=== PATIENT | female | born 1955 | race Caucasian/White ===

== ENCOUNTER → 2017-08-20 | Outpatient (CLI) | payer OTHER | LOC: RAD 09:57 | PROVIDERS: ATTEND Internal Medicine | DX: Z12.31 Encounter for screening mammogram for malignant neoplasm of breast (principal) | CPT/HCPCS: 77067 ==

== ENCOUNTER → 2018-02-24 | Outpatient (CLI) | payer SELFPAY ==
[~2018-02-24] MED LIST: ANTI1CAP5 PO; CHOL500050 PO; DOCU100T7 PO; ESCI10TA PO; GABA-488 PO; GLUC1CAP37 PO; IBUP-1773 PO; IBUP1TAB9 PO; LACT1CAP62 PO; LISI1TAB6 PO; LORA10TA76 PO; OMEG100032 PO
--- NOTE | 2018-02-24 11:23 | Diagnostic Imaging Report ---
INDICATION: Postmenopausal bleeding. PROCEDURE: US Non-ob pelvis comp/trans. TECHNIQUE: Multiple Realtime grayscale images were obtained of the pelvis in Various projections endovaginally. Transabdominal imaging was also performed. FINDINGS: The uterus measures 7.7 x 5.4 x 4.5 cm. The endometrium is 9 mm in thickness. No myometrial mass is detected. There are some cystic regions located within the endometrium. There is endometrial heterogeneity present. The ovaries were not visualized. No adnexal mass or free fluid is seen. IMPRESSION: There is mild endometrial thickening at 6 mm with endometrial heterogeneity and multicystic changes, as described. No other significant abnormality is seen. Dictated by: Dictated on workstation # [id number]
== END ==
LOC: RAD 10:10
PROVIDERS: ATTEND Obstetrics & Gynecology
DX: N85.8 Other specified noninflammatory disorders of uterus (principal)
CPT/HCPCS: 76830; 76856

== ENCOUNTER 2018-02-25 05:35 | Outpatient (CLI) | payer OTHER ==
[~2018-02-25] VITALS: Ht 157.5 cm; Wt 88.5 kg
[2018-02-25] MEDS ORDERED: IBUP1TAB9 PO (13:41)
[2018-02-25] MEDS ORDERED: ESCI10TA PO (13:41)
[2018-02-25] MEDS ORDERED: GLUC1CAP37 PO (13:41)
[2018-02-25] MEDS ORDERED: LACT1CAP62 PO (13:41)
[2018-02-25] MEDS ORDERED: OMEG100032 PO (13:41)
[2018-02-25] MEDS ORDERED: ANTI1CAP5 PO (13:41)
[2018-02-25] MEDS ORDERED: CHOL500050 PO (13:41)
[2018-02-25] MEDS ORDERED: LORA10TA76 PO (13:41)
[2018-02-25] MEDS ORDERED: LISI1TAB6 PO (13:41)
[2018-02-25] MEDS ORDERED: GABA-488 PO (13:41)
[2018-02-25] MEDS ORDERED: DOCU100T7 PO (13:41)
== END 2018-02-25 13:50 ==
LOC: PREOP 05:35
PROVIDERS: ATTEND Obstetrics & Gynecology
DX: Z01.818 Encounter for other preprocedural examination (principal); N95.0 Postmenopausal bleeding

== ENCOUNTER 2018-02-28 07:37 | Day surgery (SDC) | payer SELFPAY ==
[~2018-02-28] VITALS: Ht 157.5 cm; Wt 88.5 kg
[~2018-02-28 07:37] MED LIST changes: -IBUP-1773 PO
[2018-02-28] MEDS ORDERED: proPOfol 200 MG/20 ML (DIPRIVAN) VIAL IV ONE (08:25)
[2018-02-28] MEDS ORDERED: ONDANSETRON 4 MG/2 ML (SDV) Z0FRAN ONE (08:25)
[2018-02-28] MEDS ORDERED: DEXAMETHASONE 10 MG/ML (DECADRON) 1 ML VIAL ONE (08:25)
[2018-02-28] MEDS ORDERED: LIDOCAINE PF 2% 5 ML (XYLOCAINE) VIAL ONE (08:25)
[2018-02-28] MEDS ORDERED: fentaNYL INJECTION 100 MCG/2 ML AMP ONE (08:26)
[2018-02-28] MEDS ORDERED: MIDAZOLAM 2 MG/2 ML (VERSED) VIAL ONE (08:26)
[2018-02-28 08:29] VITALS: BP 129/69
[2018-02-28] MEDS ORDERED: BUPIVACAINE 0.25% 30 ML (SENSORCAINE) VIAL ONE (08:44)
[2018-02-28 09:03] LABS: BASOPHILS # (AUTO) 0.1 10^3/uL (0.0-0.1); BASOPHILS % (AUTO) 2 % (0-10); EOSINOPHILS # (AUTO) 0.2 10^3/uL (0.0-0.3); EOSINOPHILS % (AUTO) 4 % (0-10); HEMATOCRIT 38 % (35-52); HEMOGLOBIN 12.7 G/DL (11.5-16.0); LYMPHOCYTES # (AUTO) 2.2 X 10^3 (1.0-4.0); LYMPHOCYTES % (AUTO) 40 % (12-44); MEAN CORPUSCULAR HEMOGLOBIN 29 PG (25-34); MEAN CORPUSCULAR HGB CONC 33 G/DL (32-36); MEAN CORPUSCULAR VOLUME 89 FL (80-99); MONOCYTES # (AUTO) 0.6 X 10^3 (0.0-1.0); MONOCYTES % (AUTO) 11 % (0-12); NEUTROPHILS # (AUTO) 2.4 X 10^3 (1.8-7.8); NEUTROPHILS % (AUTO) 43 % (42-75); PLATELET COUNT 284 10^3/uL (130-400); RED BLOOD COUNT 4.32 10^6/uL (4.35-5.85); RED CELL DISTRIBUTION WIDTH 14.5 % (10.0-14.5); WHITE BLOOD COUNT 5.6 10^3/uL (4.3-11.0)
[2018-02-28] MEDS ORDERED: D5 LR IV SOLUTION 1,000 ML IV SCH (09:52)
--- NOTE | 2018-02-28 09:52 | Progress Note-Pre Operative ---
Pre-Operative Progress Note H&P Reviewed The H&P was reviewed, patient examined and no changes noted. Date Seen by Provider: February 28, 2018 Time Seen by Provider: 09:52 Date H&P Reviewed: February 28, 2018 Time H&P Reviewed: 09:50 Pre-Operative Diagnosis: PMB, Endometrial thickening OSMAR WHITING DO February 28, 2018 9:52 am
--- NOTE | 2018-02-28 09:54 | Discharge Inst-Women's Service ---
Discharge Inst-Women's Serv Depart Medication/Instructions New, Converted or Re-Newed RX: RX on Chart Consults/Follow Up Additional Follow Up: Yes Orders/Referrals Dr. whiting in 2-3 weeks Activity Activity: Activity as Tolerated Driving Instructions: You May Drive (do not drive today) NO SMOKING: NO SMOKING Nothing Inside Vagina: No Douching, No [place], No Tampons Diet Discharge Diet: No Restrictions Symptoms to Report to : Bleeding Excessive, Pain Increased, Fever Over 101 Degrees F, Vaginal Bleeding Increase, Questions/Concerns For Any Problems or Questions: Contact Your Physician OSMAR WHITING DO February 28, 2018 9:54 am
[2018-02-28] MEDS ORDERED: IBUP-1773 PO (09:55)
[2018-02-28] MEDS ORDERED: HYDROcodone/APAP 5 MG/325 MG (LORTAB) TAB PO PRN (10:00)
[2018-02-28] MEDS ORDERED: KETOROLAC 30 MG/ML VIAL IVP ONE (10:00)
[2018-02-28] MEDS ORDERED: ONDANSETRON 4 MG/2 ML (SDV) Z0FRAN IVP PRN (10:00)
[2018-02-28] MEDS ORDERED: SEVOFLURANE (ULTANE) 15 ML INHAL SOLN ONE (10:30)
[2018-02-28 11:35] VITALS: BP 151/79
[2018-02-28 12:05] VITALS: BP 142/79
[2018-02-28 12:35] VITALS: BP 123/50
[2018-02-28 12:53] VITALS: BP 123/50
[2018-02-28] MEDS ORDERED: LACTATED RINGERS 1,000 ML IV PRN (13:03)
--- NOTE | 2018-02-28 14:14 | Anesthesia-General Post-Op ---
General Patient Condition Mental Status/LOC: Same as Preop Cardiovascular: Satisfactory Nausea/Vomiting: Absent Respiratory: Satisfactory Pain: Controlled Complications: Absent Post Op Complications Complications None Follow Up Care/Instructions Patient Instructions None needed. Anesthesia/Patient Condition Patient Condition Patient is doing well, no complaints, stable vital signs, no apparent adverse anesthesia problems. No complications reported per nursing. D/C home per [facility] [place] Criteria: No SRIDHAR MICHELE CRNA February 28, 2018 14:14
--- NOTE | 2018-02-28 15:55 | OPERATIVE REPORT ---
DATE OF SERVICE: PREOPERATIVE DIAGNOSES: 1. A 62-year-old female with postmenopausal bleeding. 2. Thickened endometrium on ultrasound. POSTOPERATIVE DIAGNOSES: 1. A 62-year-old female with postmenopausal bleeding. 2. Thickened endometrium on ultrasound. 3. Ectocervical polyp. PROCEDURE: D and C hysteroscopy with hysteroscopic guidance resection of endometrial polyp. SURGEON: Trey Crisostomo DO ANESTHESIA: General endotracheal. ESTIMATED BLOOD LOSS: Minimal. URINE OUTPUT: 200 mL clear drained at the start of the procedure. FLUIDS: 800 mL lactated Ringer solution. FINDINGS: There is a large what appears to be necrotic polypoid structure coming out of the ectocervix and going into the endocervix. Grossly normal appearing vaginal mucosa and mild grade II cystocele. SPECIMEN SENT: Endocervical polyp and endometrial curettings. INDICATION FOR PROCEDURE: A 62-year-old female is a consultation to me from Dr. Jonas for postmenopausal bleeding and follow up ultrasound revealing a thickened endometrium. We discussed biopsy in the office; however, due to the ongoing issues with bleeding that she had at that time, we discussed D and C for both diagnostic and curative purposes. Risks of the procedure were discussed with the patient in detail. Risk of bleeding, infection, damage to any surrounding structures including but not limited to bowel, bladder, ureter, kidneys, postoperative complications, need for blood transfusion and risks from anesthesia were all discussed. After all of her questions were answered, consent was obtained in the preoperative area and the patient was taken to the operating room. OPERATIVE REPORT IN DETAIL: Once in the operating room, general anesthesia was found to be adequate. She was placed in dorsal lithotomy position, prepped and draped in normal sterile fashion. The bladder was then drained using straight catheterization. A weighted speculum was inserted into the patient's vagina, which allows me to visualize the anterior vaginal wall, which there is a mild grade II cystocele. A right angle retractor was then used to visualize the cervix, which was grasped at 12 o'clock position. I am able to visualize the long pedunculated polypoid structure as described in the findings above. I grasped it with a ring forceps and twisted until it comes off at its pedicle. This is sent separate from the endometrial curettings. I then gently sound the uterine cavity depth was found to be 7 cm, I then performed paracervical block at 3 and 9 o'clock positions on the cervix. Care was taken to aspirate before injecting and I injected 0.25% Marcaine 5 mL at each site. I then gently advanced the hysteroscope using the Playroll fluid management system and normal saline as my visual medium I am able to visualize the endometrial cavity, which reveals multiple polypoid appearing structures within the endometrium. After this was removed, I then performed a gentle curettage of the entire endometrial cavity collecting the tissue and sending as endometrial curettings. I then go back and look hysteroscopically at this point, there it is still some persistent polyps at the uterine fundus, which were then taken down using endometrial resectoscope. Once these were taken down, there was no active bleeding noted from any of the polyp removal planes. I removed the hysteroscope and removed the Allis clamp. There was no active bleeding noted from the site as well. The patient tolerated the procedure well and was taken to recovery area in stable condition after all instruments were removed and lap and sponge count was correct at the end x2. Job ID: [id number] DocumentID: [id number] Dictated Date: 02/28/2018 10:59:19 Director Hair Date: 02/28/2018 15:54:10 Dictated By: DO EVANGELIST SIMMONS
== END 2018-02-28 12:53 | disposition home or self-care (01) ==
LOC: SDC 07:37
PROVIDERS: ATTEND Obstetrics & Gynecology
DX: N95.0 Postmenopausal bleeding (principal); R93.8 Abnormal findings on diagnostic imaging of other specified body structures; N84.1 Polyp of cervix uteri; I10 Essential (primary) hypertension; Z79.899 Other long term (current) drug therapy; Z96.641 Presence of right artificial hip joint
CPT/HCPCS: 36415; 85025; 86850; 86900; 86901; 87081; 88305

== ENCOUNTER 2019-01-21 08:45 | Outpatient (CLI) | payer MEDICARE ==
[~2019-01-21] VITALS: Ht 157.5 cm; Wt 88.5 kg
[~2019-01-21 08:45] MED LIST changes: +ASPI-586 PO; +CA C1TAB78 PO; +GLUC-144 PO; +IBUP-1773 PO; +MELA5CAP PO; +MV-M1CAP18 PO; +NAPR1TAB25 PO; +NAPR220C11 PO; +OMEP20TA7 PO; +SENN-145 PO
== END 2019-01-21 08:51 ==
LOC: PREOP 08:45
PROVIDERS: ATTEND Internal Medicine
DX: Z01.818 Encounter for other preprocedural examination (principal)

== ENCOUNTER 2019-01-23 08:18 | Day surgery (SDC) | payer MEDICARE, OTHER ==
--- NOTE | 2019-01-15 19:47 | HISTORY AND PHYSICAL ---
DATE OF SERVICE: EGD HISTORY AND PHYISCAL DATE OF SURGERY: 01/23/2019. HISTORY OF PRESENT ILLNESS: The patient is a 63-year-old white female, who presented to the office on 01/14/2019 reporting increased problems with dysphagia. She is already taking omeprazole 20 mg daily in the morning and denying any significant heartburn symptoms. She points to the mid precordial region where she feels solid food hangs up and is also painful at times to swallow. She has had progressive weight gain, but for the first time, her weight was down 2.6 pounds coming through the winter time. She has had no melena or bright red blood per rectum. She is doing well in regards to right hip pain. She is able to ambulate more following right total hip replacement for avascular necrosis. She continues to have chronic hot flashes ever since menopause, but tolerates some relatively well. She also has a history of hypertension. PHYSICAL EXAMINATION: GENERAL: Reveals a pleasant overweight white female in no acute distress. VITAL SIGNS: Weight was down 2.6 pounds to 195.6, blood pressure 120/72. HEENT: Oral cavity reveals a Mallampati class 3 pharyngeal configuration. No erythema or exudates are noted. NECK: Revealed no JVD, adenopathy or bruits. CHEST: Clear to auscultation. CARDIOVASCULAR: Reveals regular rate and rhythm without murmur, S3 or S4. ABDOMEN: Reveals some mild epigastric discomfort to palpation without rebound or guarding. No mass or organomegaly is noted. Bowel sounds are positive. EXTREMITIES: Reveal no cyanosis, clubbing or edema. ASSESSMENT AND PLAN: 1. History of reflux on 20 mg omeprazole daily with progressive dysphagia to solids and odynophagia. The patient has no past history of EGD evaluation, so she was set up for an EGD on 01/23/2019. She is advised to pay careful attention to mastication and avoid difficult to chew foods in the interim. 2. Hypertension under good control. 3. Blood tests reviewed with the patient. Chronic ALT elevation with no history of alcohol consumption compatible with nonalcoholic fatty liver disease was improved. Due to mild weight loss, ALT was down from 36 to 33. The cholesterol numbers were stable, moderately elevated earlier and normal CT for coronary scoring. Advised continued weight loss. Lastly, she does have some insulin resistance with a fasting sugar of 117 also making weight loss important and discussed with the patient. Prep instructions for EGD were given and questions were answered. I will see her back in 6 months otherwise for a routine followup. Job ID: [id number] DocumentID: [id number] Dictated Date: 01/14/2019 11:56:57 Quality Assurance Specialist Date: 01/14/2019 12:13:16 Dictated By: ANA RODRIGUEZ MD
[~2019-01-23] VITALS: Ht 157.5 cm; Wt 88.5 kg
[2019-01-23 08:25] VITALS: BP 140/74
[2019-01-23] MEDS ORDERED: HURRICAINE EXT TUBE (BENZOCAINE) XX PRN (08:30)
[2019-01-23] MEDS ORDERED: D5 LR IV SOLUTION 1,000 ML IV STA (08:30)
[2019-01-23] MEDS ORDERED: MIDAZOLAM 2 MG/2 ML (VERSED) VIAL IVP ONE (08:30)
[2019-01-23] MEDS ORDERED: fentaNYL INJECTION 100 MCG/2 ML AMP IVP ONE (08:30)
--- NOTE | 2019-01-23 09:08 | Pre-Op Note & Conscious Sedat ---
Pre-Operative Progress Note H&P Reviewed The H&P was reviewed, patient examined and no changes noted. Date H&P Reviewed: Jan 23, 2019 Time H&P Reviewed: 09:07 Conscious Sedation Pre-Proced ASA Score 2 For ASA 3 and 4: Consider anesthesia and medical clearance. Also, for patients with a history of failed moderate sedation consider anesthesia. Airway Lungs Heart ASA score ASA 1: a normal healthy patient ASA 2: a patient with a mild systemic disease (mid diabetes, controlled hypertension, obesity ASA 3: a patient with a severe systemic disease that limits activity (angina , COPD, prior Myocardial infarction) ASA 4: a patient with an incapacitating disease that is a constant threat to life (CHF, renal failure) ASA 5: a moribund patient not expected to survive 24 hrs. (ruptured aneurysm) ASA 6: a declared brain- patient whose organs are being harvested. For emergent operations, add the letter E after the classification Mallampati Classification Grade 3 Sedation Plan Analgesia, Amnesia, Plan communicated to team members, Discussed options with patient/fam, Discussed risks with patient/fam The patient is an appropriate candidate to undergo the planned procedure, sedation, and anesthesia. The patient immediately re-assessed prior to indication. ANA RODRIGUEZ MD Jan 23, 2019 09:08
[2019-01-23] MEDS ORDERED: fentaNYL INJECTION 100 MCG/2 ML AMP ONE (09:44)
[2019-01-23] MEDS ORDERED: LIDOCAINE JELLY 2% 6 ML SYRINGE ONE (09:44)
[2019-01-23] MEDS ORDERED: MIDAZOLAM 2 MG/2 ML (VERSED) VIAL ONE ×2 (09:44)
[2019-01-23] MEDS ORDERED: hydrALAZINE (APESOLINE) 20 MG/ML VIAL ONE (09:45)
--- OUTSIDE RECORDS SUMMARY | 2019-01-23 10:14 | XMS REPORT | Continuity of Care Document ---
Author Organization Unknown Address Unknown Allergies Active Description Code Type Severity Reaction Onset Reported/Identified Relationship to Patient Clinical Status Yes adhesive tape [id number] Drug Allergy Unknown HIVES 01/21/2019 Yes neomycin [id number] Drug Allergy Unknown FROM CHILDHOOD 01/21/2019 Medications There is no data. Problems Date Dx Coded Attending Type Code Diagnosis Diagnosed By 06/22/2015 Ot V76.12 06/22/2015 ANA RODRIGUEZ MD Ot V76.12 06/22/2015 ANA RODRIGUEZ MD Ot V76.12 07/01/2015 ANA RODRIGUEZ MD Ot V76.12 07/10/2016 ANA RODRIGUEZ MD Ot V76.12 OTH SCREEN MAMMO-MALIGN NEOPLASM OF JOHN 07/10/2016 ANA RODRIGUEZ MD Ot V76.12 OTH SCREEN MAMMO-MALIGN NEOPLASM OF JOHN 07/10/2016 ANA RODRIGUEZ MD Ot V76.12 OTH SCREEN MAMMO-MALIGN NEOPLASM OF JOHN 07/11/2016 ANA RODRIGUEZ MD Ot V76.12 OTH SCREEN MAMMO-MALIGN NEOPLASM OF JOHN 07/11/2016 ANA RODRIGUEZ MD Ot V76.12 OTH SCREEN MAMMO-MALIGN NEOPLASM OF JOHN 07/11/2016 ANA RODRIGUEZ MD Ot V76.12 OTH SCREEN MAMMO-MALIGN NEOPLASM OF JOHN 07/11/2016 ANA RODRIGUEZ MD Ot Z12.31 ENCNTR SCREEN MAMMOGRAM FOR MALIGNANT NE 07/20/2016 ANA RODRIGUEZ MD Ot Z12.31 ENCNTR SCREEN MAMMOGRAM FOR MALIGNANT NE 08/13/2017 ANA RODRIGUEZ MD Ot V76.12 OTH SCREEN MAMMO-MALIGN NEOPLASM OF JOHN 08/13/2017 ANA RODRIGUEZ MD Ot V76.12 OTH SCREEN MAMMO-MALIGN NEOPLASM OF JOHN 08/13/2017 ANA RODRIGUEZ MD Ot V76.12 OTH SCREEN MAMMO-MALIGN NEOPLASM OF JOHN 08/13/2017 MICHAEL FLORENTINO, ANA Ye Ot Z12.31 ENCNTR SCREEN MAMMOGRAM FOR MALIGNANT NE 08/19/2017 MICHAEL FLORENTINO, ANA Ye Ot V76.12 OTH SCREEN MAMMO-MALIGN NEOPLASM OF JOHN 08/19/2017 MICHAEL FLORENTINO, ANA Ye Ot Z12.31 ENCNTR SCREEN MAMMOGRAM FOR MALIGNANT NE 02/19/2018 MICHAEL FLORENTINO, ANA Ye Ot V76.12 OTH SCREEN MAMMO-MALIGN NEOPLASM OF JOHN 02/19/2018 MICHAEL FLORENTINO, ANA Ye Ot V76.12 OTH SCREEN MAMMO-MALIGN NEOPLASM OF JOHN 02/19/2018 MICHAEL FLORENTINO, ANA Ye Ot V76.12 OTH SCREEN MAMMO-MALIGN NEOPLASM OF JOHN 02/19/2018 MICHAEL FLORENTINO, ANA Ye Ot Z12.31 ENCNTR SCREEN MAMMOGRAM FOR MALIGNANT NE 02/25/2018 OSMAR WHITING DO Ot N85.8 OTHER SPECIFIED NONINFLAMMATORY DISORDER 02/25/2018 OSMAR WHITING DO Ot N85.8 OTHER SPECIFIED NONINFLAMMATORY DISORDER 02/25/2018 OSMAR WHITING DO Ot N95.0 POSTMENOPAUSAL BLEEDING 02/25/2018 OSMAR WHITING DO Ot Z01.818 ENCOUNTER FOR OTHER PREPROCEDURAL EXAMIN 02/25/2018 OSMAR WHITING DO Ot N95.0 POSTMENOPAUSAL BLEEDING 02/25/2018 OSMAR WHITING DO Ot Z01.818 ENCOUNTER FOR OTHER PREPROCEDURAL EXAMIN 02/28/2018 OSMAR WHITING DO Ot I10 ESSENTIAL (PRIMARY) HYPERTENSION 02/28/2018 OSMAR WHITING DO Ot N84.1 POLYP OF CERVIX UTERI 02/28/2018 OSMAR WHITING DO Ot N95.0 POSTMENOPAUSAL BLEEDING 02/28/2018 OSMAR WHITING DO Ot R93.8 ABNORMAL FINDINGS ON DIAGNOSTIC IMAGING 02/28/2018 OSMAR WHITING DO Ot Z79.899 OTHER MOBILE ENGINEER (CURRENT) DRUG THERAPY 02/28/2018 OSMAR WHITING DO Ot Z96.641 PRESENCE OF RIGHT ARTIFICIAL HIP JOINT 03/10/2018 OSMAR WHITING DO Ot I10 ESSENTIAL (PRIMARY) HYPERTENSION 03/10/2018 OSMAR WHITING DO Ot N84.1 POLYP OF CERVIX UTERI 03/10/2018 FENECH DO, OSMAR S Ot N95.0 POSTMENOPAUSAL BLEEDING 03/10/2018 OSMAR WHITING DO S Ot R93.8 ABNORMAL FINDINGS ON DIAGNOSTIC IMAGING 03/10/2018 OSMAR WHITING DO Ot Z79.899 OTHER MOBILE ENGINEER (CURRENT) DRUG THERAPY 03/10/2018 OSMAR WHITING DO Ot Z96.641 PRESENCE OF RIGHT ARTIFICIAL HIP JOINT 08/13/2018 MICHAEL FLORENTINO, ANA Ye Ot V76.12 OTH SCREEN MAMMO-MALIGN NEOPLASM OF JOHN 08/13/2018 MICHAEL FLORENTINO, ANA Ye Ot Z12.31 ENCNTR SCREEN MAMMOGRAM FOR MALIGNANT NE 08/13/2018 ANA RODRIGUEZ MD Ot Z12.31 ENCNTR SCREEN MAMMOGRAM FOR MALIGNANT NE 01/20/2019 ANA RODRIGUEZ MD Ot V76.12 OTH SCREEN MAMMO-MALIGN NEOPLASM OF JOHN 01/20/2019 ANA RODRIGUEZ MD Ot V76.12 OTH SCREEN MAMMO-MALIGN NEOPLASM OF JOHN 01/20/2019 ANA RODRIGUEZ MD Ot Z12.31 ENCNTR SCREEN MAMMOGRAM FOR MALIGNANT NE 01/20/2019 OSMAR WHITING DO S Ot N85.8 OTHER SPECIFIED NONINFLAMMATORY DISORDER 01/21/2019 ANA RODRIGUEZ MD Ot Z01.818 ENCOUNTER FOR OTHER PREPROCEDURAL EXAMIN 01/21/2019 ANA RODRIGUEZ MD Ot Z01.818 ENCOUNTER FOR OTHER PREPROCEDURAL EXAMIN 01/21/2019 ANA RODRIGUEZ MD Ot Z01.818 ENCOUNTER FOR OTHER PREPROCEDURAL EXAMIN 01/21/2019 ANA RODRIGUEZ MD Ot Z01.818 ENCOUNTER FOR OTHER PREPROCEDURAL EXAMIN 01/21/2019 ANA RODRIGUEZ MD Ot Z01.818 ENCOUNTER FOR OTHER PREPROCEDURAL EXAMIN 01/22/2019 ANA RODRIGUEZ MD Ot V76.12 OTH SCREEN MAMMO-MALIGN NEOPLASM OF JOHN 01/22/2019 ANA RODRIGUEZ MD Ot V76.12 OTH SCREEN MAMMO-MALIGN NEOPLASM OF JOHN 01/22/2019 ANA RODRIGUEZ MD Ot Z12.31 ENCNTR SCREEN MAMMOGRAM FOR MALIGNANT NE 01/22/2019 KAICOLLETTE BROWN OSMAR S Ot N85.8 OTHER SPECIFIED NONINFLAMMATORY DISORDER Procedures There is no data. Results Test Result Range Methicillin resistant Staphylococcus aureus (MRSA) screening culture - 05/25/ 18 08:20 Methicillin resistant Staphylococcus aureus (MRSA) screening culture NEG NRG Complete blood count (CBC) with automated white blood cell (WBC) differential - 02/28/18 08:37 Blood leukocytes automated count (number/volume) 5.6 10*3/uL 4.3-11.0 Blood erythrocytes automated count (number/volume) 4.32 10*6/uL 4.35-5.85 Venous blood hemoglobin measurement (mass/volume) 12.7 g/dL 11.5-16.0 Blood hematocrit (volume fraction) 38 % 35-52 Automated erythrocyte mean corpuscular volume 89 [foz_us] 80-99 Automated erythrocyte mean corpuscular hemoglobin (mass per erythrocyte) 29 pg 25-34 Automated erythrocyte mean corpuscular hemoglobin concentration measurement ( mass/volume) 33 g/dL 32-36 Automated erythrocyte distribution width ratio 14.5 % 10.0-14.5 Automated blood platelet count (count/volume) 284 10*3/uL 130-400 Automated blood platelet mean volume measurement 10.0 [foz_us] 7.4-10.4 Automated blood neutrophils/100 leukocytes 43 % 42-75 Automated blood lymphocytes/100 leukocytes 40 % 12-44 Blood monocytes/100 leukocytes 11 % 0-12 Automated blood eosinophils/100 leukocytes 4 % 0-10 Automated blood basophils/100 leukocytes 2 % 0-10 Blood neutrophils automated count (number/volume) 2.4 10*3 1.8-7.8 Blood lymphocytes automated count (number/volume) 2.2 10*3 1.0-4.0 Blood monocytes automated count (number/volume) 0.6 10*3 0.0-1.0 Automated eosinophil count 0.2 10*3/uL 0.0-0.3 Automated blood basophil count (count/volume) 0.1 10*3/uL 0.0-0.1 Encounters ACCT No. Visit Date/Time Discharge Status Pt. Type Provider Facility Loc./Unit Complaint [id number] 01/21/2019 08:45:00 01/21/2019 08:51:00 DIS Outpatient ANA RODRIGUEZ MD [facility] PREOP EGD [id number] 02/28/2018 07:37:00 02/28/2018 12:53:00 DIS Outpatient OSMAR WHITING DO [facility] SDC POST MENOPAUSAL BLEEDING [id number] 02/25/2018 05:35:00 02/25/2018 13:50:00 DIS Outpatient OSMAR WHITING DO [facility] PREOP POST MENOPAUSAL BLEEDING [id number] 02/24/2018 10:10:00 02/24/2018 23:59:59 CLS Outpatient OSMAR WHITING DO [facility] RAD N95.0 POSTMENOPAUSAL BLEEDING [id number] 08/20/2017 09:57:00 08/20/2017 23:59:59 CLS Outpatient ANA RODRIGUEZ MD [facility] RAD SCREENING [id number] 07/10/2016 09:21:00 07/10/2016 23:59:59 CLS Outpatient ANA RODRIGUEZ MD [facility] RAD SCREENING [id number] 06/22/2015 09:45:00 06/22/2015 23:59:59 CLS Outpatient ANA RODRIGUEZ MD [facility] RAD SCREENING [id number] 05/25/2014 09:23:00 05/25/2014 23:59:59 CLS Outpatient ANA RODRIGUEZ MD [facility] RAD SCREENING [id number] 05/20/2013 09:31:00 05/20/2013 23:59:59 CLS Outpatient ANA RODRIGUEZ MD [facility] RAD SCREENING [id number] 01/23/2019 08:18:00 ACT Outpatient ANA RODRIGUEZ MD [facility] ENDO DYSPHAGIA [id number] 03/02/2010 08:36:00 Document Registration
[2019-01-23 10:35] VITALS: BP 121/78
[2019-01-23 11:05] VITALS: BP 100/61
[2019-01-23 11:15] VITALS: BP 100/61
--- NOTE | 2019-01-23 23:37 | OPERATIVE REPORT ---
DATE OF SERVICE: EGD SUMMARY INDICATIONS: EGD was performed for evaluation of dysphagia with reflux symptoms. DESCRIPTION OF PROCEDURE: The patient was placed in left lateral decubitus position. The endoscope was inserted into the oral cavity and under direct visualization, the esophagus was intubated. Endoscope was passed down the esophagus, stomach and second portion of the duodenum. Careful inspection was made as the endoscope was withdrawn. The patient tolerated the procedure well. FINDINGS: Posterior hypopharynx, true and false vocal folds and arytenoid aperture were unremarkable. Proximal and mid esophagus were unremarkable. There is some mild erythema noted at the Z line with evidence for sphincter laxity. There was no evidence for hiatal hernia formation and no evidence for erosive esophagitis was noted. A biopsy from the Z line was obtained. It did unroof 0.5 cm strip of superficial distal esophageal mucosa with minimal blood loss. The cardia, fundus, antrum, pylorus, pyloric channel, duodenal bulb and second portion of the duodenum were unremarkable. No evidence for peptic ulcer disease or gastritis was noted. ASSESSMENT: No evidence for mechanical obstruction was noted. There is evidence to suggest lower esophageal sphincter laxity without evidence for significant hiatal hernia or evidence for erosive esophagitis. Mild erythema at the GE junction compatible with nonerosive esophagitis was noted. Discussed the importance of portion control for weight loss, continuing proton pump inhibitor therapy, chewing food well and advised soft solid diet for the next 48 hours. We will await on histopathology report, but otherwise today's findings were quite reassuring. Job ID: [id number] DocumentID: [id number] Dictated Date: 01/23/2019 12:03:48 Salesperson Yard Goods Date: 01/23/2019 23:37:07 Dictated By: ANA RODRIGUEZ MD [facility]
== END 2019-01-23 11:15 | disposition home or self-care (01) ==
LOC: ENDO 08:18
PROVIDERS: ATTEND Internal Medicine
DX: K20.9 Esophagitis, unspecified (principal); K21.9 Gastro-esophageal reflux disease without esophagitis; I10 Essential (primary) hypertension
CPT/HCPCS: 88305

== ENCOUNTER 2019-01-28 10:45 | Emergency (ER) | payer MEDICARE, OTHER ==
[~2019-01-28] VITALS: Ht 157.5 cm; Wt 88.5 kg
--- NOTE | 2019-01-28 11:53 | ED Back Pain ---
General Chief Complaint: Back Problems Stated Complaint: R SIDE/LOWER BACK PAIN Source of Information: Patient Exam Limitations: No Limitations History of Present Illness Date Seen by Provider: Jan 28, 2019 Time Seen by Provider: 11:51 Initial Comments Patient had sudden onset of severe left flank pain radiating to left groin at 930 a.m. She broke out in a sweat. She is nauseated. She's never had pain like this before. She took her hydrocodone which helped a little. No fevers or chills. Allergies and Home Medications Allergies Coded Allergies: adhesive tape (Verified Allergy, Unknown, HIVES, 01/21/19) neomycin (Verified Allergy, Unknown, FROM CHILDHOOD, 01/21/19) Home Medications Antiox #11/Om3/Dha/Epa/Lut/Delaney 1 Each Capsule, 1 EACH PO DAILY, (Reported) Ca Carb & Gluc/Mag Ox & Gluc 1 Each Tablet, 1 EACH PO DAILY, (Reported) Cholecalciferol (Vitamin D3) 5,000 Unit Capsule, 5,000 UNIT PO BID, (Reported) Docusate Sodium 100 Mg Tablet, 100 MG PO DAILY, (Reported) Escitalopram Oxalate 10 Mg Tablet, 10 MG PO DAILY, (Reported) Gabapentin 300 Mg Capsule, 300 MG PO BID, (Reported) Glucosa Alvarez 2Kcl/Chondroitin Alvarez 1 Each Capsule, 1 EACH PO BID, (Reported) Glucosamine HCl/Chondr Alvarez A Na 1 Each Tablet, 2 EACH PO DAILY, (Reported) Lactobacillus Acidophilus 1 Each Capsule, 1 EACH PO DAILY, (Reported) Lisinopril/Hydrochlorothiazide 1 Each Tablet, 1 EACH PO DAILY, (Reported) Loratadine 10 Mg Tablet, 10 MG PO DAILY, (Reported) Melatonin 5 Mg Capsule, 5 MG PO HS, (Reported) Mv-Mn/Lutein/Zeax/Bilber/Hb277 1 Each Capsule, 1 EACH PO DAILY, (Reported) Naproxen Na-Diphenhydramin HCl 1 Each Tablet, 1 EACH PO HS, (Reported) Naproxen Sodium 220 Mg Capsule, 220 MG PO PRN, (Reported) [place]-3/Dha/Epa/Fish Oil 1,000 Mg Capsule, 1,000 MG PO DAILY, (Reported) Omeprazole 20 Mg Tablet.dr, 20 MG PO DAILY, (Reported) Oxycodone HCl/Acetaminophen 1 Each Tablet, 1 EACH PO Q6H PRN for PAIN-SEVERE Prescribed by: EUGENIA DAVILA on 01/28/19 1253 Sennosides/Docusate Sodium 1 Each Tablet, 1 EACH PO HS, (Reported) Sulfamethoxazole/Trimethoprim 1 Each Tablet, 1 EACH PO BID Prescribed by: EUGENIA DAVILA on 01/28/19 1253 Patient Home Medication List Home Medication List Reviewed: Yes Review of Systems Constitutional: diaphoresis; No fever Respiratory: no symptoms reported Cardiovascular: no symptoms reported Gastrointestinal: abdominal pain (LUQ), nausea Musculoskeletal: back pain Skin: no symptoms reported All Other Systems Reviewed Negative Unless Noted: Yes Past Rhxqxdg-Nngxha-Pujxjr Hx Patient Social History 2nd Hand Smoke Exposure: No Recent Foreign Travel: No Contact w/Someone Who Travel: No Recent Hopitalizations: No Immunizations Up To Date Tetanus Booster (TDap): Unknown PED Vaccines UTD: No Date of Influenza Vaccine: Jul 14, 2018 Seasonal Allergies Seasonal Allergies: Yes Past Medical History Surgeries: Yes (BILAT CATARACTS, VAGINAL CYST REMOVED, BACK SX, RT HIP REPLACED ) Appendectomy, Tubal Ligation Respiratory: No Cardiac: Yes (MURMUR A CHILD) Hypertension Neurological: Yes Headaches /Migraines Reproductive Disorders: Yes (PMB) HEAD OF MEASUREMENT & INSIGHTS History: Tubal Ligation Sexually Transmitted Disease: No HIV/AIDS: No Genitourinary: No Gastrointestinal: Yes (DYSPHAGIA) Gastroesophageal Reflux, Chronic Constipation, Irritable Bowel Musculoskeletal: Yes Arthritis, Chronic Back Pain Endocrine: No HEENT: Yes (GLASSES) Loss of Vision: Bilateral Hearing Impairment: Denies Cancer: No Psychosocial: No Anxiety, Depression Integumentary: Yes (PSORIATIC ARTHRITES ON THUMB) Psoriasis Blood Disorders: Yes (HX ANEMIA) Adverse Reaction/Blood Tranf: No (N/A) Physical Exam Vital Signs Vital Signs - First Documented 01/28/19 11:40 Temp 98.3 Pulse 77 Resp 20 B/P (MAP) 134/75 (94) Pulse Ox 96 O2 Delivery Room Air Capillary Refill : Height, Weight, BMI Height: 5'2.00" Weight: 195lbs. 0.0oz. [id number]; 35.7 BMI Method: General Appearance: No Apparent Distress, WD/WN HEENT: Moist Mucous Membranes Neck: Normal Inspection, Supple Cardiovascular: Regular Rate, Rhythm, No Edema Respiratory: Lungs Clear, Normal Breath Sounds Gastrointestinal: Non Tender, Soft Back: Normal Inspection; No Muscle Spasm, No Vertebral Tenderness Extremity: Normal Range of Motion Neurologic/Psychiatric: Alert, No Motor/Sensory Deficits Skin: Normal Color, Warm/Dry; No Rash Progress/Results/Core Measures Results/Orders Lab Results Laboratory Tests Test 01/28/19 12:00 01/28/19 12:10 Range/Units White Blood Count 10.2 4.3-11.0 10^3/uL Red Blood Count 4.76 4.35-5.85 10^6/uL Hemoglobin 14.2 11.5-16.0 G/DL Hematocrit 43 35-52 % Mean Corpuscular Volume 90 80-99 FL Mean Corpuscular Hemoglobin 30 25-34 PG Mean Corpuscular Hemoglobin Concent 33 32-36 G/DL Red Cell Distribution Width 13.3 10.0-14.5 % Platelet Count 334 130-400 10^3/uL Mean Platelet Volume 9.5 7.4-10.4 FL Neutrophils (%) (Auto) 66 42-75 % Lymphocytes (%) (Auto) 21 12-44 % Monocytes (%) (Auto) 9 0-12 % Eosinophils (%) (Auto) 2 0-10 % Basophils (%) (Auto) 1 0-10 % Neutrophils # (Auto) 6.8 1.8-7.8 X 10^3 Lymphocytes # (Auto) 2.2 1.0-4.0 X 10^3 Monocytes # (Auto) 0.9 0.0-1.0 X 10^3 Eosinophils # (Auto) 0.2 0.0-0.3 10^3/uL Basophils # (Auto) 0.1 0.0-0.1 10^3/uL Sodium Level 141 135-145 MMOL/L Potassium Level 3.9 3.6-5.0 MMOL/L Chloride Level 104 98-107 MMOL/L Carbon Dioxide Level 27 21-32 MMOL/L Anion Gap 10 5-14 MMOL/L Blood Urea Nitrogen 16 7-18 MG/DL Creatinine 1.12 0.60-1.30 MG/DL Estimat Glomerular Filtration Rate 49 BUN/Creatinine Ratio 14 Glucose Level 98 70-105 MG/DL Calcium Level 9.9 8.5-10.1 MG/DL Corrected Calcium 9.7 8.5-10.1 MG/DL Total Bilirubin 0.3 0.1-1.0 MG/DL Aspartate Amino Transf (AST/SGOT) 25 5-34 U/L Alanine Aminotransferase (ALT/SGPT) 42 0-55 U/L Alkaline Phosphatase 74 40-136 U/L Total Protein 7.4 6.4-8.2 GM/DL Albumin 4.2 3.2-4.5 GM/DL Lipase 39 8-78 U/L Urine Color YELLOW Urine Clarity CLEAR Urine pH 5 5-9 Urine Specific Roberta 1.020 1.016-1.022 Urine Protein NEGATIVE NEGATIVE Urine Glucose (UA) NEGATIVE NEGATIVE Urine Ketones NEGATIVE NEGATIVE Urine Nitrite NEGATIVE NEGATIVE Urine Bilirubin NEGATIVE NEGATIVE Urine Urobilinogen NORMAL NORMAL MG/DL Urine Leukocyte Esterase 3+ H NEGATIVE Urine RBC (Auto) NEGATIVE NEGATIVE Urine RBC NONE /HPF Urine WBC 5-10 H /HPF Urine Squamous Epithelial Cells 2-5 /HPF Urine Crystals NONE /LPF Urine Bacteria TRACE /HPF Urine Casts NONE /LPF Urine Mucus SMALL H /LPF Urine Culture Indicated YES My Orders Orders - EUGENIA DAVILA MD Comprehensive Metabolic Panel (01/28/19 11:48) Lipase (01/28/19 11:48) Cbc With Automated Diff (01/28/19 11:48) Ct Abdomen/Pelvis Wo (01/28/19 11:48) Ns Iv 1000 Ml (Sodium Chloride 0.9%) (01/28/19 12:00) Ketorolac Injection (Toradol Injection) (01/28/19 12:00) Urinalysis (01/28/19 11:50) Urine Culture (01/28/19 12:10) Ondansetron Injection (Zofran Injectio (01/28/19 12:39) Tamsulosin Capsule (Flomax Capsule) (01/28/19 13:00) Medications Given in ED Current Medications Medications Dose Ordered Sig/Bridget Route Start Time Stop Time Status Last Admin Dose Admin Ketorolac Tromethamine 30 mg ONCE ONCE IV 01/28/19 12:00 01/28/19 12:01 DC 01/28/19 12:07 30 MG Ondansetron HCl 4 mg STK-MED ONCE .ROUTE 01/28/19 12:39 01/28/19 12:42 DC 01/28/19 12:43 4 MG Sodium Chloride 1,000 ml ONCE ONCE IV 01/28/19 12:00 01/28/19 12:01 DC 01/28/19 12:07 1,000 ML Vital Signs/I&O 01/28/19 11:40 Temp 98.3 Pulse 77 Resp 20 B/P (MAP) 134/75 (94) Pulse Ox 96 O2 Delivery Room Air Progress Progress Note : Time: 12:48 Progress Note Patient feels better after medications. CT scan shows stability millimeters stone left distal ureter. Stable for discharge. Departure Impression Primary Impression: UTI (urinary tract infection) Additional Impression: Ureteral stone Disposition: HOME, SELF-CARE Condition: Stable Admissions Decision to Admit Reason: Admit from ER (General) Departure-Patient Inst. Decision time for Depature: 12:49 Referrals: ANA RODRIGUEZ MD (PCP/Family) Primary Care Physician Patient Instructions: Kidney Stones (DC) Add. Discharge Instructions: Drink plenty of fluids. Strain urine for stone. Take antibiotics until finished. Oxycodone as needed for severe pain. All discharge instructions reviewed with patient and/or family. Voiced understanding. Scripts Oxycodone HCl/Acetaminophen (Oxycodone-Acetaminophen 5-325) 1 Each Tablet 1 EACH PO Q6H PRN for PAIN-SEVERE MDD 6, #12 TAB Prov: EUGENIA DAVILA MD 01/28/19 Sulfamethoxazole/Trimethoprim (Bactrim Ds Tablet) 1 Each Tablet 1 EACH PO BID, #6 TAB Prov: EUGENIA DAVILA MD 01/28/19 EUGENIA DAVILA MD Jan 28, 2019 11:53
[2019-01-28] MEDS ORDERED: NS 1000 ML IV BAG IV ONE (12:00)
[2019-01-28] MEDS ORDERED: KETOROLAC 30 MG/ML VIAL IV ONE (12:00)
[2019-01-28 12:07] LABS: BASOPHILS # (AUTO) 0.1 10^3/uL (0.0-0.1); BASOPHILS % (AUTO) 1 % (0-10); EOSINOPHILS # (AUTO) 0.2 10^3/uL (0.0-0.3); EOSINOPHILS % (AUTO) 2 % (0-10); HEMATOCRIT 43 % (35-52); HEMOGLOBIN 14.2 G/DL (11.5-16.0); LYMPHOCYTES # (AUTO) 2.2 X 10^3 (1.0-4.0); LYMPHOCYTES % (AUTO) 21 % (12-44); MEAN CORPUSCULAR HEMOGLOBIN 30 PG (25-34); MEAN CORPUSCULAR HGB CONC 33 G/DL (32-36); MEAN CORPUSCULAR VOLUME 90 FL (80-99); MEAN PLATELET VOLUME 9.5 FL (7.4-10.4); MONOCYTES # (AUTO) 0.9 X 10^3 (0.0-1.0); MONOCYTES % (AUTO) 9 % (0-12); NEUTROPHILS # (AUTO) 6.8 X 10^3 (1.8-7.8); NEUTROPHILS % (AUTO) 66 % (42-75); PLATELET COUNT 334 10^3/uL (130-400); RED CELL DISTRIBUTION WIDTH 13.3 % (10.0-14.5); WHITE BLOOD COUNT 10.2 10^3/uL (4.3-11.0)
[2019-01-28 12:18] LABS: BILIRUBIN,URINE NEGATIVE (NEGATIVE); CLARITY,URINE CLEAR; COLOR,URINE YELLOW; GLUCOSE, URINE (UA) NEGATIVE (NEGATIVE); KETONES,URINE NEGATIVE (NEGATIVE); LEUKOCYTE ESTERASE ,URINE 3+ (NEGATIVE); NITRITE,URINE NEGATIVE (NEGATIVE); PH,URINE 5 (5-9); PROTEIN,URINE NEGATIVE (NEGATIVE); UROBILINOGEN,URINE NORMAL (NORMAL)
[2019-01-28 12:26] LABS: ALBUMIN 4.2 GM/DL (3.2-4.5); BILIRUBIN,TOTAL 0.3 MG/DL (0.1-1.0); CALCIUM 9.9 MG/DL (8.5-10.1); CREATININE SERUM 1.12 MG/DL (0.60-1.30); POTASSIUM 3.9 MMOL/L (3.6-5.0); TOTAL PROTEIN 7.4 GM/DL (6.4-8.2)
[2019-01-28 12:29] LABS: BACTERIA,URINE TRACE /HPF
--- NOTE | 2019-01-28 12:32 | Diagnostic Imaging Report ---
PROCEDURE: CT abdomen and pelvis without contrast. TECHNIQUE: Multiple contiguous axial images were obtained through the abdomen and pelvis without the use of intravenous contrast. Auto Exposure Controls were utilized during the CT exam to meet ALARA standards for radiation dose reduction. INDICATION: Left-sided pain accompanied by nausea. History of nephrolithiasis. COMPARISON: No prior examinations are available for comparison. FINDINGS: A 2.8 mm stone in the distal left ureter is just less than 1 cm proximal to the level of the UVJ. This calculus results in a relatively mild degree of upstream left-sided hydroureteronephrosis with mild to moderate left-sided perinephric edema. No urinoma or fluid collection and there are no additional radiodense urinary tract stones. Scattered incidental phleboliths in the pelvis and along the gonadal vein distributions are noted incidentally. The urinary bladder was nearly completely empty limiting its evaluation. The uterus and adnexa appear nonacute. There is no appendicitis or diverticulitis. There is a fatty liver. The spleen is negative. The adrenals and pancreas are unremarkable. The gallbladder is contracted and there is no bile duct dilatation. IMPRESSION: 1. A 2.8 mm distal left ureteral stone with Hounsfield unit density of 331 results in mild left-sided upstream hydroureteronephrosis and moderate perinephric edema. 2. No additional radiodense stone disease. 3. Fatty liver. Dictated by: Dictated on workstation # [id number]
[2019-01-28] MEDS ORDERED: ONDANSETRON 4 MG/2 ML (SDV) Z0FRAN ONE (12:39)
[2019-01-28] MEDS ORDERED: SULF1TAB35 PO (12:53)
[2019-01-28] MEDS ORDERED: OXYC-471 PO (12:53)
[2019-01-28] MEDS ORDERED: TAMSULOSIN 0.4 MG (FLOMAX) CAP PO ONE (13:00)
[2019-01-28 13:36] VITALS: BP 122/69
== END 2019-01-28 13:36 | disposition home or self-care (01) ==
LOC: EDUNIT# 10:45 → ER 10:46
DX: N13.6 Pyonephrosis (principal); I10 Essential (primary) hypertension; G43.909 Migraine, unspecified, not intractable, without status migrainosus; K21.9 Gastro-esophageal reflux disease without esophagitis; K58.9 Irritable bowel syndrome, unspecified; F41.9 Anxiety disorder, unspecified; F32.9 Major depressive disorder, single episode, unspecified; D64.9 Anemia, unspecified; Z87.19 Personal history of other diseases of the digestive system; Z91.048 Other nonmedicinal substance allergy status; Z88.1 Allergy status to other antibiotic agents; Z87.448 Personal history of other diseases of urinary system; Z96.641 Presence of right artificial hip joint; Z90.49 Acquired absence of other specified parts of digestive tract; Z98.51 Tubal ligation status
CPT/HCPCS: 36415; 74176; 80053; 81000; 83690; 85025; 87088

== ENCOUNTER → 2020-07-05 | Outpatient (CLI) | payer MEDICARE, OTHER ==
[~2020-07-05] MED LIST changes: +LISI1TAB29 PO; -LISI1TAB6 PO; +OXYC-471 PO; +SULF1TAB35 PO
--- NOTE | 2020-07-05 16:25 | Diagnostic Imaging Report ---
EXAMINATION: Digital mammogram bilateral screening with CAD. INDICATION: Screening. COMPARISON: This study was compared to the prior exams of 06/26/2019, 08/20/2017, and 07/10/2016. PERSONAL HISTORY: At this time, there are no current complaints. FINDINGS: There are scattered fibroglandular densities in both breasts which could obscure a lesion. Overall, there does not appear to have been any significant change when compared to the prior exam. No primary or secondary sign of malignancy is noted. IMPRESSION: There is no radiographic evidence for malignancy. ACR BI-RADS Category 1: Negative. Result letter will be mailed to the patient. Note: At least 10% of breast cancer is not imaged by mammography. Dictated by: Dictated on workstation # [id number]
== END ==
LOC: RAD 10:55
PROVIDERS: ATTEND Obstetrics & Gynecology
DX: Z12.31 Encounter for screening mammogram for malignant neoplasm of breast (principal)
CPT/HCPCS: 77063; 77067

== ENCOUNTER → 2021-05-15 | Outpatient (CLI) | payer MEDICARE, OTHER ==
[~2021-05-15] MED LIST changes: -OXYC-471 PO; +OXYC1TAB11 PO; -SULF1TAB35 PO; +SULF1TAB38 PO
[2021-05-15 11:25] LABS: BASOPHILS # (AUTO) 0.2 10^3/uL (0.0-0.1); BASOPHILS % (AUTO) 2 % (0-10); EOSINOPHILS # (AUTO) 0.3 10^3/uL (0.0-0.3); EOSINOPHILS % (AUTO) 3 % (0-10); HEMATOCRIT 43 % (35-52); HEMOGLOBIN 13.9 g/dL (11.5-16.0); LYMPHOCYTES # (AUTO) 2.9 10^3/uL (1.0-4.0); LYMPHOCYTES % (AUTO) 30 % (12-44); MEAN CORPUSCULAR HEMOGLOBIN 30 pg (25-34); MEAN CORPUSCULAR HGB CONC 32 g/dL (32-36); MEAN CORPUSCULAR VOLUME 94 fL (80-99); MEAN PLATELET VOLUME 9.2 fL (9.0-12.2); MONOCYTES # (AUTO) 0.7 10^3/uL (0.0-1.0); MONOCYTES % (AUTO) 8 % (0-12); NEUTROPHILS % (AUTO) 53 % (42-75); PLATELET COUNT 433 10^3/uL (130-400); WHITE BLOOD COUNT 9.5 10^3/uL (4.3-11.0)
[2021-05-15 11:34] LABS: ALBUMIN 3.9 GM/DL (3.2-4.5); CHLORIDE 101 MMOL/L (98-107); POTASSIUM 4.2 MMOL/L (3.6-5.0); SODIUM 140 MMOL/L (135-145)
[2021-05-15 11:35] LABS: CALCIUM 10.3 MG/DL (8.5-10.1)
[2021-05-15 11:36] LABS: GLUCOSE 95 MG/DL (70-105); TOTAL PROTEIN 7.7 GM/DL (6.4-8.2)
[2021-05-15 11:37] LABS: CARBON DIOXIDE 29 MMOL/L (21-32)
[2021-05-15 11:38] LABS: BILIRUBIN,TOTAL 0.3 MG/DL (0.1-1.0)
[2021-05-15 11:40] LABS: ALKALINE PHOSPHATASE 73 U/L (40-136); CREATININE SERUM 1.07 MG/DL (0.60-1.30); GFR ESTIMATED 51
[2021-05-15 11:41] LABS: BUN/CREATININE RATIO 14
[2021-05-15 11:43] LABS: ALANINE AMINOTRANSFERASE 54 U/L (0-55)
== END ==
LOC: CARD 11:00
PROVIDERS: ATTEND Internal Medicine
DX: R07.9 Chest pain, unspecified (principal); R06.02 Shortness of breath; B96.20 Unspecified Escherichia coli [E. coli] as the cause of diseases classified elsewhere
CPT/HCPCS: 36415; 80053; 84484; 85025; 93005

== ENCOUNTER → 2021-07-28 | Outpatient (CLI) | payer MEDICARE, OTHER ==
--- NOTE | 2021-07-28 12:08 | Diagnostic Imaging Report ---
Indication: Routine screening. Comparison is made with prior mammogram 07/05/2020 and 06/26/2019. 2-D and 3-D bilateral screening mammography was performed with CAD. Scattered fibroglandular densities are identified bilaterally. The parenchymal pattern is stable. No mass or malignant-appearing microcalcifications are seen. Axillae are unremarkable. IMPRESSION: BI-RADS Category 1 No mammographic features suspicious for malignancy are identified. ACR BI-RADS Category 1: Negative. Result letter will be mailed to the patient. Note: At least 10% of breast cancer is not imaged by mammography. Dictated by: Dictated on workstation # [id number]
== END ==
LOC: RAD 09:15
PROVIDERS: ATTEND Internal Medicine
DX: Z12.31 Encounter for screening mammogram for malignant neoplasm of breast (principal)
CPT/HCPCS: 77063; 77067

== ENCOUNTER → 2022-07-31 | Outpatient (CLI) | payer MEDICARE, OTHER ==
[~2022-07-31] MED LIST changes: -LISI1TAB29 PO; +LISI1TAB44 PO; +OMEP20TA56 PO; -OMEP20TA7 PO
--- NOTE | 2022-07-31 14:45 | Diagnostic Imaging Report ---
INDICATION: Routine screening. COMPARISON is made with prior mammograms 07/28/2021 and 07/05/2020. 2-D and 3-D bilateral screening mammography was performed with CAD. Scattered fibroglandular densities are identified bilaterally. A nodular density in the central right breast appears stable and likely benign. No new mass or malignant-appearing microcalcifications are seen. Axillae are unremarkable. IMPRESSION: BI-RADS Category 2 No mammographic features suspicious for malignancy are identified. ACR BI-RADS Category 2: Benign findings. Result letter will be mailed to the patient. Note: At least 10% of breast cancer is not imaged by mammography. Dictated by: Dictated on workstation # [id number]
== END ==
LOC: RAD 11:31
PROVIDERS: ATTEND Internal Medicine
DX: Z12.31 Encounter for screening mammogram for malignant neoplasm of breast (principal)
CPT/HCPCS: 77063; 77067

== ENCOUNTER 2023-02-06 06:04 | Outpatient (CLI) | payer MEDICARE, OTHER ==
[~2023-02-06] VITALS: Ht 157.5 cm; Wt 86.2 kg
[2023-02-07] MEDS ORDERED: ROSU20TA32 PO (11:46)
== END 2023-02-07 11:56 | disposition home or self-care (01) ==
LOC: PREOP 06:04
PROVIDERS: ATTEND Internal Medicine
DX: Z01.818 Encounter for other preprocedural examination (principal)

== ENCOUNTER 2023-02-15 08:27 | Day surgery (SDC) | payer MEDICARE, OTHER ==
--- NOTE | 2023-02-01 08:28 | HISTORY AND PHYSICAL ---
COLONOSCOPY HISTORY AND PHYSICAL HISTORY OF PRESENT ILLNESS: The patient is a 67-year-old white female seen for evaluation of hypertension and hyperlipidemia as well as lumbar radiculopathy. It has been over 12 years since her first screening colonoscopy that was unremarkable except for some diverticular disease. She reports that she still has issues with some bilateral lower quadrant abdominal discomfort that seems to be dietary in etiology, especially if she eats onions. It has not been associated with chills, fever, bright red blood per rectum or melena. There has been no change in weight. She reports stable low level fatigue. She has had no chest discomfort. No orthopnea, PND, or pedal edema was stable, but persistent bilateral buttock pain that radiates around to the groin. PHYSICAL EXAMINATION: GENERAL: Reveals a white female who did not appear to be in acute distress. VITAL SIGNS: Weight is stable 190 pounds, blood pressure 118/74. CHEST: Clear. CARDIOVASCULAR: Reveals a regular rate and rhythm without murmur, S3, or S4. ABDOMEN: Soft, supple without mass, organomegaly, or tenderness. Some mild left lower quadrant discomfort to palpation without rebound or guarding. EXTREMITIES: No cyanosis, clubbing or edema. Blood tests were reviewed with the patient. Her cholesterol level was significantly elevated up from 223-300, triglyceride level was higher at 222, LDL was 204 with an HDL of 52. Basic metabolic panel was normal. Fasting sugar 97. Estimated GFR 80. ASSESSMENT AND PLAN: 1. The patient is being set up for screening colonoscopy. Prep instructions were given and questions were answered. 2. Significant increase in cholesterol levels. I did put the patient on rosuvastatin, but then reviewed her records after she had left. She has not had a recent thyroid level obtained. We will add this to her list or perform it when I do her colonoscopy. The patient was scheduled to return in 6 months. 3. Hypertension, appears to be under good control. Colonoscopy prep instructions were given and questions were answered. Job ID: [id number] DocumentID: [id number] Dictated Date: 01/28/2023 16:59:08 Layout Mechanic Date: 01/28/2023 17:26:00 Dictated By: ANA RODRIGUEZ MD
[~2023-02-15] VITALS: Ht 157 cm; Wt 86.2 kg
[~2023-02-15 08:27] MED LIST changes: +ROSU20TA32 PO
[2023-02-15] MEDS ORDERED: LACTATED RINGERS 1,000 ML IV STA (08:28)
--- NOTE | 2023-02-15 09:13 | Pre-Op Note & Conscious Sedat ---
Pre-Operative Progress Note Date H&P Reviewed: February 15, 2023 Time H&P Reviewed: 09:12 History & Physical: H&P Reviewed, Patient Examed, No changes noted Pre-Op Diagnosis: screening Moderate Sedation PreProcedure ASA Score 2 Airway Lungs Heart ASA score ASA 1: a normal healthy patient ASA 2: a patient with a mild systemic disease (mid diabetes, controlled hypertension, obesity ASA 3: a patient with a severe systemic disease that limits activity (angina, COPD, prior Myocardial infarction) ASA 4: a patient with an incapacitating disease that is a constant threat to life (CHF, renal failure) ASA 5: a moribund patient not expected to survive 24 hrs. (ruptured aneurysm) ASA 6: a declared brain- patient whose organs are being harvested. For emergent operations, add the letter E after the classification Mallampati Classification Grade 3 Sedation Plan Analgesia, Amnesia, Plan communicated to team members, Discussed options with patient/fam, Discussed risks with patient/fam The patient is an appropriate candidate to undergo the planned procedure, sedation, and anesthesia. The patient immediately re-assessed prior to indication. ANA RODRIGUEZ MD February 15, 2023 09:13
[2023-02-15 09:18] VITALS: BP 138/78
[2023-02-15] MEDS ORDERED: PROPOFOL INJECTION 50 ML IV ONE (10:05)
[2023-02-15] MEDS ORDERED: MIDAZOLAM 2 MG/2 ML (VERSED) VIAL ONE (10:05)
[2023-02-15] MEDS ORDERED: SIMETHICONE 40 MG/0.6 ML (MYLICON DROPS) 30 ML BTL ONE (10:16)
[2023-02-15] MEDS ORDERED: SIMETHICONE 40 MG/0.6 ML (MYLICON DROPS) 30 ML BTL PO PRN (10:30)
[2023-02-15 10:35] VITALS: BP 98/51
[2023-02-15 10:40] VITALS: BP 94/53
[2023-02-15 10:45] VITALS: BP 96/53
--- NOTE | 2023-02-15 10:45 | Progress Note-Post Operative ---
Post-Procedure Note Physician (s)/Finish Remover (s) Physician ANA RODRIGUEZ MD Pre-Procedure Diagnosis Pre-Procedure Diagnosis: screening Post-Procedure Diagnosis Post-operative diagnosis: Prior to undergoing colonoscopy digital rectal evaluation was performed. Anal sphincter tone was normal and the perianal reflexes intact. There is a prominent anterior perianal skin fold but no evidence for hemorrhoids. There is also a gluteal skin tag noted. No abnormalities noted on digital inspection of the anal canal or distal rectal vault. The colonoscope was then inserted into the rectum and under direct visualization advanced to the cecum. The cecum was identified by indication of the ileocecal valve and cecal strap. Photographic documentation was obtained. Careful Inspection was made as the colonoscope withdrawn. the quality of the prep was good. Findings there were no evidence for internal or external hemorrhoids. One 3 mm hyperplastic appearing polyp was noted in the rectum and removed via cold Polypectomy. There was no subsequent blood loss. The remainder the rectum was unremarkable. Several small sigmoid diverticulum were present without evidence for diverticulitis. No other sigmoid colonic abnormalities are appreciated. The descending colon splenic flexure transverse colon hepatic flexure ascending colon and cecum were unremarkable under good prep conditions. A/P 1. One 3 mm hyperplastic appearing polyp was removed via cold biopsy from the mid rectum. Mild sigmoid diverticular disease is present without evidence of diverticulitis. No other abnormalities noted on today's procedure. Would advocate consideration for repeat screening colonoscopy in 10 years. ANA RODRIGUEZ MD February 15, 2023 10:45
[2023-02-15 11:07] VITALS: BP 96/53
--- NOTE | 2023-02-15 11:38 | Anesthesia-General Post-Op ---
MAC Patient Condition Mental Status/LOC: Same as Preop Cardiovascular: Satisfactory Nausea/Vomiting: Absent Respiratory: Satisfactory Pain: Controlled Complications: Absent Post Op Complications Complications None Follow Up Care/Instructions Patient Instructions None needed. Anesthesiology Discharge Order Discharge Order Patient is doing well, no complaints, stable vital signs, no apparent adverse anesthesia problems. No complications reported per nursing. INGRID SIMPSON CRNA February 15, 2023 11:38
== END 2023-02-15 11:30 | disposition home or self-care (01) ==
LOC: ENDO 08:27
PROVIDERS: ATTEND Internal Medicine
DX: Z12.11 Encounter for screening for malignant neoplasm of colon (principal); K62.1 Rectal polyp; K57.30 Diverticulosis of large intestine without perforation or abscess without bleeding; K64.4 Residual hemorrhoidal skin tags; I10 Essential (primary) hypertension; E78.5 Hyperlipidemia, unspecified; M54.16 Radiculopathy, lumbar region; Z79.899 Other long term (current) drug therapy

== ENCOUNTER → 2023-08-14 | Outpatient (CLI) | payer MEDICARE, OTHER ==
[~2023-08-14] MED LIST changes: -ROSU20TA32 PO; +ROSU20TA73 PO
--- NOTE | 2023-08-14 22:24 | Diagnostic Imaging Report ---
INDICATION: Routine screening. Comparison is made with prior mammogram from 07/31/2022 and 07/26/2021. 2-D and 3-D bilateral screening mammography was performed with CAD. Scattered fibroglandular densities are identified bilaterally. A benign-appearing nodule in the central right breast is stable. No new mass or malignant-appearing microcalcifications are identified. Axillae are unremarkable. IMPRESSION: No mammographic features suspicious for malignancy are identified. ACR BI-RADS Category 2: Benign findings. Result letter will be mailed to the patient. Note: At least 10% of breast cancer is not imaged by mammography. BI-RADS Category 2 Dictated on workstation # [id number]
== END ==
LOC: RAD 08:02
PROVIDERS: ATTEND Internal Medicine
DX: Z12.31 Encounter for screening mammogram for malignant neoplasm of breast (principal)
CPT/HCPCS: 77063; 77067